=== PATIENT | male | born 1955 | race Caucasian/White ===

== ENCOUNTER 2017-12-21 16:15 | Emergency (ER) | payer OTHER ==
--- NOTE | 2017-12-21 16:38 | EDPHY ---
H & P Time Seen by Provider: 12/21/17 16:37 HPI/ROS: CHIEF COMPLAINT: Shortness of breath and cough HISTORY OF PRESENT ILLNESS: Patient has been symptomatic for about a week. Of note he developed hives 2 weeks ago and was seen by his primary care practice started on some Zyrtec on Thursday. He does have history of pulmonary embolism back in 2001. He describes a 1 week of coughing phlegm associated with fever and malaise. His heartburn is worse which is a burning sensation central in his chest around his sternal notch. At sensation is not exertional or pleuritic and does not radiate. Cough is moderate shortness of breath is moderate as well. He has audible wheezing. Not associated with fever chills or sputum production or hemoptysis or leg swelling. REVIEW OF SYSTEMS: Eye: no change in vision ENT: no sore throat Cardiac: No syncope Pulmonary: HPI Abdomen: no vomiting, diarrhea, abdominal pain Musculoskeletal: No leg swelling Skin: no rash Neuro: no headache Constitutional: no fever : no urinary symptoms A comprehensive 10 point review of systems is otherwise negative aside from elements mentioned in the history of present illness. PAST MEDICAL HISTORY: Diagnosis of Ipuek-Hbbeoahyf-Nvobw in the past but not confirm subsequently, pulmonary embolism, hypertension, diabetes Social history: No recent travel or immobilization, nonsmoker General Appearance: Alert and conversant, cooperative. Eyes: No scleral icterus. ENT, Mouth: Normal mucous membranes. Respiratory: Bilateral expiratory wheezing with prolonged expiratory phase, no rhonchi or rales auscultated. Cardiovascular: Regular rate and rhythm. Gastrointestinal: Abdomen is soft and non tender. Neurological: Alert, face symmetric, normal motor and sensory in extremities. Skin: Warm and dry, no rashes. No hives at this time. Musculoskeletal: No calf tenderness. Psychiatric: Not agitated. Emergency Department course/MDM: More likely URI with allergic phenomenon and wheezing, will treat with DuoNeb and oral prednisone short course discussed and consented. Will check D-dimer because of history of pulmonary embolism although I think that is unlikely. 1727: D-dimer greater than 1, history of pulmonary embolism, CT angio discussed and consented. I think that acute coronary syndrome is unlikely. 1800: CT angio shows no pulmonary embolism or pneumonia discussed with Dr. Gibson. Plan to discharge the patient as above., results discussed. Smoking Status: Never smoked Constitutional: Initial Vital Signs Temperature (C) 36.5 C 12/21/17 16:25 Heart Rate 94 12/21/17 16:25 Respiratory Rate 16 12/21/17 16:25 Blood Pressure 128/87 H 12/21/17 16:25 O2 Sat (%) 94 12/21/17 16:25 O2 Delivery Mode Room Air Allergies/Adverse Reactions: No Known Allergies Allergy (Unverified 12/21/17 16:24) Home Medications: Medication Instructions Recorded Albuterol Hfa Anes Only [Proair 2 puffs IH QID #1 mdi 12/21/17 Hfa Icu (*)] Aspirin 12/21/17 Atorvastatin Calcium 12/21/17 Glipizide 12/21/17 Invokana 12/21/17 Lisinopril-Hctz 10-12.5 mg Tab 12/21/17 Metformin HCl 12/21/17 Tamsulosin HCl 12/21/17 predniSONE [prednisone 20mg (RX)] 20 mg PO Q12 4 Days tab 12/21/17 Medical Decision Making - Diagnostics EKG Interpretation: 12-lead EKG interpreted by me; official reading is in trace master. My interpretation is sinus rhythm with inferior Q-waves noted, rate 93. Imaging Results: Imaging Impressions Chest/Thorax CTA 12/21/17 17:27 Impression: 1. No definite pulmonary thromboemboli. 2. No pneumonia, pleural effusion or pneumothorax. 3. No aortic aneurysm or dissection. 4. 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 Findings and recommendations discussed with Emergency Department physician, EVAN MIN at 18:00 hour, 12/21/2017. Final report concurs with initial preliminary interpretation. A test result has been communicated to a licensed care provider and documented in the listedplaces Critical Result system on 12/21/2017 18:00, Message ID [id number]. Imaging: Discussed imaging studies w/ boots and shoes supervisor Radiologist, I viewed and interpreted images myself Differential Diagnosis: Differential diagnosis considered for shortness of breath including but not limited to pulmonary infectious process, COPD, asthma, pulmonary embolus and congestive heart failure. - Data Points Laboratory Results: Laboratory Results 12/21/17 17:00 12/21/17 17:00 12/21/17 12/21/17 12/21/17 17:00 17:00 17:00 WBC 7.99 10^3/uL 10^3/uL (3.80-9.50) RBC 5.42 10^6/uL 10^6/uL (4.40-6.38) Hgb 15.7 g/dL g/dL (13.7-17.5) Hct 47.3 % % (40.0-51.0) MCV 87.3 fL fL (81.5-99.8) MCH 29.0 pg pg (27.9-34.1) MCHC 33.2 g/dL g/dL (32.4-36.7) RDW 13.5 % % (11.5-15.2) Plt Count 261 10^3/uL 10^3/uL (150-400) MPV 8.9 fL fL (8.7-11.7) Neut % (Auto) 64.3 % % (39.3-74.2) Lymph % (Auto) 23.4 % % (15.0-45.0) [place] % (Auto) 7.0 % % (4.5-13.0) Eos % (Auto) 4.1 % % (0.6-7.6) Baso % (Auto) 0.3 % % (0.3-1.7) Nucleat RBC Rel Count 0.0 % % (0.0-0.2) Absolute Neuts (auto) 5.14 10^3/uL 10^3/uL (1.70-6.50) Absolute Lymphs (auto) 1.87 10^3/uL 10^3/uL (1.00-3.00) Absolute Monos (auto) 0.56 10^3/uL 10^3/uL (0.30-0.80) Absolute Eos (auto) 0.33 10^3/uL 10^3/uL (0.03-0.40) Absolute Basos (auto) 0.02 10^3/uL 10^3/uL (0.02-0.10) Absolute Nucleated RBC 0.00 10^3/uL 10^3/uL (0-0.01) Immature Gran % 0.9 % % (0.0-1.1) Immature Gran # 0.07 10^3/uL 10^3/uL (0.00-0.10) D-Dimer 1.02 ug/mLFEU H ug/mLFEU (0.00-0.50) Sodium 139 mEq/L mEq/L (135-145) Potassium 4.5 mEq/L mEq/L (3.3-5.0) Chloride 104 mEq/L mEq/L (97-110) Carbon Dioxide 26 mEq/l mEq/l (22-31) Anion Gap 9 mEq/L mEq/L (8-16) BUN 23 mg/dL mg/dL (7-23) Creatinine 1.0 mg/dL mg/dL (0.7-1.3) Estimated GFR > 60 Glucose 114 mg/dL H mg/dL (70-100) Calcium 9.2 mg/dL mg/dL (8.5-10.4) Medications Given: Discontinued Medications Albuterol (Proventil Neb) 3 ml IH EDNOW ONE Stop: 12/21/17 17:55 Last Admin: 12/21/17 18:01 Dose: 3 ml Albuterol/Ipratropium (Duoneb) 3 ml IH EDNOW ONE Stop: 12/21/17 16:56 Last Admin: 12/21/17 17:10 Dose: 3 ml Prednisone (Prednisone) 60 mg PO EDNOW ONE Stop: 12/21/17 16:56 Last Admin: 12/21/17 17:10 Dose: 60 mg Departure - Departure Disposition: Home, Routine, Self-Care Clinical Impression: Acute bronchitis Qualifiers: Bronchitis organism: unspecified organism Qualified Code(s): J20.9 - Acute bronchitis, unspecified Reactive airway disease Qualifiers: Asthma severity: moderate Asthma complication type: with acute exacerbation Condition: Good Instructions: Reactive Airways Disease (ED) Referrals: Bakari De Los Santos MD [Primary Care Provider] - 2-3 days, call for appt. Prescriptions: Albuterol Hfa Anes Only [Proair Hfa Icu (*)] 2 puffs IH QID #1 mdi predniSONE [prednisone 20mg (RX)] 20 mg PO Q12 4 Days tab
--- NOTE | 2017-12-21 16:43 | CPEKG ---
Heart Rate: 93 RR Interval: 645 P-R Interval: 160 QRSD Interval: 78 QT Interval: 332 QTC Interval: 413 P [place]: 34 QRS [place]: -3 T Wave [place]: 92 EKG Severity - ABNORMAL ECG - EKG Impression: SINUS RHYTHM EKG Impression: INFERIOR INFARCT, OLD Electronically Signed By: Manas Mayen 21-Dec-2017 17:08:21
[2017-12-21] MEDS ORDERED: predniSONE 20 MG TAB PO ONE (16:55)
[2017-12-21] MEDS ORDERED: IPRATROPIUM/ALBUTEROL 3 ML DEYVIAL IH ONE (16:55)
[2017-12-21 17:12] LABS: PLATELET COUNT 261 10^3/uL (150-400)
[2017-12-21] MEDS ORDERED: IOPAMIDOL (ISOVUE 370) 100 ML BTL IV ONE (17:32)
[2017-12-21] MEDS ORDERED: ALBUTEROL 3 ML DEYVIAL IH ONE (17:54)
[2017-12-21 18:20] VITALS: BP 104/65
== END 2017-12-21 18:23 | disposition home or self-care (01) ==
DX: J20.9 Acute bronchitis, unspecified (principal); J45.901 Unspecified asthma with (acute) exacerbation; I10 Essential (primary) hypertension; E11.9 Type 2 diabetes mellitus without complications; Z79.82 Long term (current) use of aspirin; Z79.84 Long term (current) use of oral hypoglycemic drugs
CPT/HCPCS: J7512; J7613; Q9967

== ENCOUNTER → 2018-03-30 | Outpatient (CLI) | payer OTHER | LOC: FIMAGING 09:35 | PROVIDERS: ATTEND Internal Medicine | DX: J39.2 Other diseases of pharynx (principal); K44.9 Diaphragmatic hernia without obstruction or gangrene; K21.9 Gastro-esophageal reflux disease without esophagitis ==